=== PATIENT | female | born 1965 | race Caucasian/White ===

== ENCOUNTER 2020-01-17 12:27 | Emergency (ER) | payer SELFPAY ==
[2020-01-17] MEDS ORDERED: Ketorolac 60 MG/2 ML SDV IM ONE (13:34)
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
== END 2020-01-17 14:18 | disposition home or self-care (01) ==
LOC: JD.ED 12:27
DX: F41.9 Anxiety disorder, unspecified (principal); Z87.891 Personal history of nicotine dependence
CPT/HCPCS: 96372; 99283; J1885; 99284